=== PATIENT | female | born 1980 | race Caucasian/White ===

== ENCOUNTER → 2019-05-30 11:42 | Outpatient (BNVA) | payer OTHER, SELFPAY | PROVIDERS: Family Provider Nurse Practitioner; Visit Provider Nurse Practitioner Family | DX: R05 Cough (principal) | CPT/HCPCS: 71046 ==

== ENCOUNTER 2019-10-28 11:58 | Outpatient (CLI) | payer OTHER, SELFPAY ==
--- NOTE | 2019-10-28 12:21 | MM_ITS ---
WS: [id number] BILATERAL DIGITAL SCREENING MAMMOGRAM WITH CAD CLINICAL INFORMATION: SCREEN HISTORY: Screening mammogram. reported lump. Patient does not feel lump. COMPARISON: [id number] TECHNIQUE: Bilateral CC and MLO. FINDINGS: The breast are composed of extremely dense tissue, which can limit the detection of small underlying mass lesions. No suspicious focal mass, asymmetry, calcifications, or architectural distortion. No ev idence of malignancy. Punctate calcifications. MM/[place] [id number] IMPRESSION: BI-RADS: 2-Benign FOLLOW UP: 1 Year Follow-up Recommend return to annual screening mammography.
== END 2019-10-28 11:59 | disposition home or self-care (01) ==
LOC: RADSHAW 12:02
PROVIDERS: Visit Provider Obstetrics & Gynecology
DX: Z12.31 Encounter for screening mammogram for malignant neoplasm of breast (principal)
CPT/HCPCS: 77067

== ENCOUNTER → 2020-01-14 08:02 | Outpatient (BNVA) | payer OTHER, SELFPAY | PROVIDERS: Visit Provider Podiatrist Foot & Ankle Surgery | DX: M79.671 Pain in right foot (principal); M79.672 Pain in left foot; M20.5X2 Other deformities of toe(s) (acquired), left foot | CPT/HCPCS: 73630 ==

== ENCOUNTER → 2020-02-04 08:47 | Outpatient (BNVA) | payer OTHER, SELFPAY | PROVIDERS: Referring Provider Nurse Practitioner; Visit Provider Specialist | DX: M79.641 Pain in right hand (principal) | CPT/HCPCS: 73130 ==

== ENCOUNTER 2020-02-04 14:32 | Outpatient (CLI) | payer OTHER, SELFPAY | END 2020-02-04 14:33 | disposition home or self-care (01) | LOC: SPT 14:33 | PROVIDERS: Visit Provider Specialist | DX: Z46.89 Encounter for fitting and adjustment of other specified devices (principal); M18.11 Unilateral primary osteoarthritis of first carpometacarpal joint, right hand | CPT/HCPCS: 97760; L3924; L4361 ==

== ENCOUNTER → 2020-03-15 16:22 | Outpatient (BNVA) | payer OTHER, SELFPAY | PROVIDERS: Visit Provider Podiatrist Foot & Ankle Surgery | DX: Z20.828 Contact with and (suspected) exposure to other viral communicable diseases (principal); Z01.818 Encounter for other preprocedural examination | CPT/HCPCS: 87635 ==

== ENCOUNTER 2020-03-19 05:51 | Day surgery (SDC) | payer OTHER, SELFPAY ==
[2020-03-18 17:24] VITALS: BMI 21.4
--- NOTE | 2020-03-19 06:19 | ANES.PREANE2 ---
Pre-Anesthetic Assessment Pre-Anesthetic Assessment: Height/Weight: Height 1.83 m Weight 71.668 kg Preop Diagnosis: Right bunion Proposed Procedure: Operation Date: 03/19/20 07:00 Proposed Procedures p Bunionectomy Lapidus [id number] M21.611(Right) - Bon Yanes DPM s Joce Osteotomy(Right) - Bon Yanes DPM Social: Social History: No alcohol and No tobacco History/ROS: No significant history except as noted Pulmonary: Pulmonary: None reported CV/HEM: CV/HEM: None reported : : None reported Hepatic: Hepatic: None reported GI: GI: None reported Metabolic: Metabolic: None reported Musc/skel: Musc/skel: OA/DJD Neuropsych: Neuropsych: None reported Anesthetic Plan: ASA status: 2 Anesthesia: Anesthesia Evaluation, Eval. for regional block and General Risk of > 500 ml blood loss (7ml/kg in children): No PFSH Anesthesia PFSH: Medical History History of herpes zoster Surgical History History of bunionectomy 1993 and 2013 History of cholecystectomy 2009 History of tonsillectomy and adenoidectomy 1986 Family History Mother Cancer Breast cancer Social History Smoking and tobacco status: never smoked Lives independently: Yes Household members: spouse and children Housing: House Marital status: Number of children: 3 Highest education level completed: Master's Degree Current occupational status: 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
[2020-03-19 06:21] VITALS: BP 130/84; PULSE 69; RESP 18; TEMP 36.7; O2SAT 95
[2020-03-19] MEDS: sodium chloride 0.9% 1,000 ML 30 ML IV (06:30)
--- NOTE | 2020-03-19 06:46 | P.HP_ITS ---
Providers/Chief Complaint Primary Care Provider: Loree Hardy BLOOD TESTER Chief Complaint: Bunion right great toe History of Present Illness Hilaria Gutierrez is a 39 year old female here today for evaluation of her bilateral foot pain. She states that she had a bunionectomy to her left foot 26 years ago and she has had a reoccurance that is causing her pain daily. She had a bunionectomy to her right foot 6 years ago and it has also had a reoccurrence. States that her right bunion is painful she also has hammertoes and a bunion of the left these are of lesser concern for her, her right bunion has been a source of pain on a daily basis she wears [employer] tennis shoes while at work, she is a secondary school teacher, she has tried a variety of [id number] spacing, pads and splints, wide accommodative shoes and inserts without relief. She would like to discuss surgical procedures at this time given her history of conservative measures at home prior to presentation. Review of Systems General: Reports: 10 or more systems reviewed and unremarkable except in HPI and below Const: Denies: fever(s) or chills Eyes: Denies: change in vision Card: Denies: chest pain or palpitations Resp: Denies: dyspnea or productive cough GI: Denies: abdominal pain, nausea or vomiting : Denies: flank pain Musc: Reports: extremity pain, joint pain, joint stiffness, limited range of motion and deformity Skin/Breast: Reports: skin tenderness; Denies: rash Neuro: Reports: difficulty walking; Denies: numbness in extremities, sensory changes or frequent falls Psych: Denies: suicidal ideation Bulmaro/Lymph: Denies: easy bruising Medications/Allergies Home Medications Medication Instructions Recorded Confirmed Last Taken Type CMC brace #1 ea 02/04/20 02/04/20 Unknown Rx cam boot #1 ea 02/04/20 Unknown Rx Allergies Allergy/AdvReac Type Severity Reaction Status Date / Time hydrocodone Allergy ALGY-Rash Verified 03/19/20 06:20 Penicillins Allergy ALGY-Rash Verified 03/19/20 06:20 PFSH PFSH: Medical History (Updated 03/19/20 @ 06:55 by Bon Yanes DPM) History of herpes zoster Surgical History History of bunionectomy 1993 and 2013 History of cholecystectomy 2009 History of tonsillectomy and adenoidectomy 1987 Family History Mother Cancer Breast cancer Social History Smoking and tobacco status: never smoked Lives independently: Yes Household members: spouse and children Housing: House Marital status: Number of children: 3 Highest education level completed: Master's Degree Current occupational status: employed Current occupation: Teacher Current gender identity: Female Vital Signs Vitals Signs: Last Vital Signs Temp 98.1 F 03/19/20 06:21 Pulse 69 03/19/20 06:21 Resp 18 03/19/20 06:21 BP 130/84 03/19/20 06:21 Pulse Ox 95 03/19/20 06:21 Weight: Weight last 48 hrs Weight 158 lb Physical Exam Narrative: EXAM NARRATIVE: Patient is alert and oriented ?3 and in no acute distress. The following is a focused bilateral lower extremity exam. VASCULAR: Dorsalis pedis and posterior tibial arteries palpable +2. Capillary refill time less than 3 seconds to the distal hallux bilaterally. Calf is supple and nontender proximally and distally. No pedal edema appreciated. Pedal hair growth present. NEUROLOGICAL: Epicritic and protopathic sensations grossly intact to the lower extremities. +2 Achilles tendon reflex noted bilaterally. Negative Tinel sign upon percussion of lower extremity nerves. DERMATOLOGICAL: Lower extremity skin is well-hydrated, normal texture and turgor. There are no open sores or lesions noted to the lower extremities. No erythema or ecchymosis present to the bilateral legs and feet. MUSCULOSKELETAL: Pain to palpation at the right bunion deformity at the medial aspect of the first metatarsal phalangeal joint as well as dorsally. Hallux abductovalgus deformity noted bilaterally right more severe with medial eminence appreciated right greater than left. Flexible flatfoot bilaterally. Arch is re-created with elevation of the hallux. Reducible hammertoe deformities 2 through 5 right foot and 2 and 3 left foot semi-reducible hammertoe deformity 4 and 5 left foot. Muscle strength 5 out of 5 in all 3 cardinal planes. Hallux is not track bound. Range of motion at the first metatarsal phalangeal joint is smooth without crepitus it is painful. Resp: COMMON NORMALS: normal respiratory effort, No retractions, No use of accessory muscles and clear to auscultation bilaterally EFFORT & INSPECTION: Yes able to speak in complete sentences and Yes symmetric chest movement Cardio: COMMON NORMALS: regular rate, regular rhythm, S1 normal heart sound present, S2 normal heart sound present and Peripheral pulses 2+ throughout A&P Assessment and plan (1) Bunion, right foot: Status: Acute xrays are obtained today and reviewed with the patient in detail patient has had a recurrence of bunion deformity bilaterally right more severe. She has retained hardware at the first metatarsal head right. -discussed conservative measures vs a lapidus bunionectomy, right consisting of wide accommodative shoes, orthotics, NSAIDs, activity modification and padding. She has been performing these measures for years without improvement. -discussed recovery of surgery, she would be NWB for 6 weeks, then she would transition to WBAT in her cam boot -she would like to have the surgery, but she also is seeing Dr. Jo in 2 weeks and she has a very high deductible. She is thinking that she would like to tejas edule it for April in a new calendar year -she is tentatively scheduled for 04/09/2019, H&P will be done on the day of surgery planning on Lapidus bunionectomy with Joce osteotomy. Lapidus bunionectomy CPT code 59802, Joce osteotomy CPT code 62740. Risks include pain, bleeding, numbness, infection, swelling, painful scar, surgical site dehiscence, painful hardware, hardware failure, delayed union, nonunion, malunion, recurrence of deformity, overcorrection of deformity, transfer pressure and transfer lesions. Patient scheduled for Lapidus bunionectomy and Joce osteotomy right foot with hardware removal. Duration of procedure 60 minutes. MAC anesthesia, appreciate popliteal block. Coding Level of Care Code Acute Computer Information Systems Instructor for Sebastián Rosenberg Diagnoses Bunion, right foot M21.611
[2020-03-19] MEDS: clindamycin 600 MG/50 ML PREMIX 100 MG IV (07:11)
--- NOTE | 2020-03-19 08:25 | ANES.PROC ---
Anesthesia Procedures Procedure/Date: 03/19/20 Nerve Block ^: Nerve Block 1: Main Anesthesia: general anesthesia Time Out Performed: Yes Consent: requested by attending/covering physician, risks and benefits reviewed and patient agrees to proceed Nerve block location: popliteal (right) Anesthesia monitors applied: pulse oximetry, EKG, BP cuff and oxygen Nerve block position: lateral (left) Anesthetic Used: ropivicaine 0.5% and with decadron (4mg) Amount of anesthesia used (mL): 30 Ultrasound used to: recognize landmarks Nerve Stimulator Used?: Yes Interscalene/Femoral BLK: 4 stimuplex 21 g needle used for position and inplane approach, visualize local anesthetic spread and no vascular puncture identified Injection: neg aspiration of heme Patient Tolerated Procedure: well and no complications Complications: none
--- NOTE | 2020-03-19 09:58 | XR_ITS ---
WS: [id number] XR foot RT min 3V* [id number] REASON FOR EXAM: post op FINDINGS: Osteotomy with pinning proximal phalanx right great toe. Plate and screw fixation of the tarsal metat arsal joint of the right great toe. Surgical appliances are in proper position and alignment. Valgus deformity reduced. XR/XR foot RT min 3V* [id number] IMPRESSION: Postoperative right foot as above.
[2020-03-19 10:10] VITALS: BP 126/72; PULSE 66; RESP 18; TEMP 37; O2SAT 99
[2020-03-19 10:43] VITALS: BP 123/82; PULSE 52; RESP 18; O2SAT 100
--- NOTE | 2020-03-19 22:29 | P.OP_ITS ---
Operative Report Date of procedure: March 19, 2020 Pre-op Diagnosis: Right bunion Post-op diagnosis: same Procedure Done: Lapidus bunionectomy and Joce osteotomy right foot, CPT code 33597 and CPT code 81261 Implants: Right medical 10 mm nitinol staple Joce osteotomy. [employer] Lapidus plate and [employer] 3.5 mm locking screws, [employer] headed 4 mm screw. 2-0 Vicryl, 4-0 Vicryl, 5-0 Monocryl, 4-0 nylon. Pathology: none sent Surgeon: Bon Yanes D.P.M. Blast Hole Driller: Faith Anesthesia: MAC Estimated blood loss: 15 mL Tourniquet time: See intraoperative documentation IV fluids: None Urine output: None Complications: None Findings: Arthrosis at the first metatarsophalangeal joint right foot. Retained nonabsorbable FiberWire at the capsule of the right first metatarsophalangeal joint and significant capsular thickening. Condition: stable Disposition: PACU Brief History: Ms. Gutierrez is a pleasant 39-year-old female who experiences significant pain on every day activities while working, recreational activities as well as basic everyday living such as standing and walking. She has pain at her right bunion. History of distal metatarsal head osteotomy with retained hardware 6 years ago. Patient states that her bunion has progressively worsened, she has been wearing wide accommodative toe box, wide shoes, supportive shoes, padding, spacers, anti-inflammatories, stretching and activity modifications and continues to have pain. Would like to undergo revisional bunionectomy. Risks include pain, bleeding, numbness, infection, swelling, hypersensitivity, neuralgia, painful scar, surgical site dehiscence, bruising, transfer pressure, transfer lesion, delayed union, malunion, painful retained hardware, hardware failure, allergic reaction to hardware, failure to correct deformity, overcorrection of deformity, hallux varus, excessive scarring and stiffness at the first metatarsophalangeal joint, need for further surgical intervention. Also risks associated with anesthesia, increased risk for DVT, PE, heart attack and stroke. Patient seen preoperatively, informed consent signed, patient is answered to patient satisfaction. Initials on the right foot. Patient wishes to proceed. Her friend Mariia is present. No guarantees written, expressed or implied. Procedure: Under mild sedation the patient was brought to the operating room and placed on the operating table in supine position. A timeout was performed. Anesthesia was then administered by the anesthesia service. Local anesthesia injected by myself consisting of 20 cc of 0.5 sent Marcaine plain. Patient did receive a popliteal block preoperatively. Well-padded pneumatic tourniquet was then applied to the right ankle. Right lower extremity was scrubbed, prepped and draped utilizing normal aseptic technique. Right foot was examined a weighted with an Esmarch bandage and the tourniquet was inflated to 250 mmHg. Attention was directed to the dorsal medial aspect of the right first tarsometatarsal joint where a linear longitudinal incision was made medial and parallel to the extensor hallucis longus tendon through skin with a #15 blade. Dissection was carried down through subcutaneous tissue utilizing a combination of blunt and sharp technique. Care was taken to retract and preserve neurovascular and tendinous structures. Bleeders were ligated and cauterized as necessary. A linear capsulotomy was performed and the base of the first metatarsal as well as the distal aspect of the medial cuneiform were freed of their soft tissue and ligament attachments. Antemann self-retaining distractor with Steinmann pins utilized to distract the first tarsometatarsal joint which was then prepared for arthrodesis via curettage and osteotome. Articular surface were denuded, subchondral plate was then penetrated utilizing fish scaling as well as subchondral drill bit. Attention was then directed to the medial aspect of the first metatarsophalangeal joint where a linear incision with a #15 blade was utilized to cross of first metatarsal phalangeal joint and the medial aspect of the proximal phalanx this was medial to the extensor hallucis longus tendon. Dissection carried down through skin, subcutaneous tissue down to the level of the joint capsule utilizing sharp and blunt technique. Care was taken to retract and preserve neurovascular and tendinous structures. Bleeders were ligated and cauterized as necessary. Linear capsulotomy was performed medially, there was significant capsular thickening this was debulked sharply with a fresh 15 blade and brown pickups. There was significant amount of nonabsorbable fiber tape both at the medial first metatarsophalangeal joint capsule does also coursed dorsally just inferior to the extensor pollicis longus tendon this was identified and sharply excised. Debris was passed from the operative field. Incision sites were flushed with copious amounts of sterile saline solution. The medial eminence of the first metatarsal head was transected followed by insertion of K wire and reduction jig provided by [employer] for frontal plane and intermetatarsal angle correction. Temporary fixation was then held utilizing K wire at the base of the first metatarsal crossing into the cuneiform. Positioning of correction noted to be excellent utilizing intraoperative fluoroscopy followed by fixation utilizing standard AO technique this was a [employer] 4.0 mm headed screw across the tarsometatarsal joint followed by locking plate with 2 screws distal and 2 screws proximal with excellent bony apposition and compression noted. Temporary fixation removed as well as Steinmann pins. Positioning and hardware placement confirmed with intraoperative fluoroscopy in all 3 cardinal planes noted to be excellent. Attention was then directed to the medial aspect of the proximal phalanx where a Joce osteotomy was performed utilizing a sagittal saw maintaining a lateral hands and fixated utilizing a 10 mm straight compression staple with excellent bony apposition and compression noted with the hallux in a more rectus position. Further capsular debulking was performed. Incision sites were then flushed with saline solution. Of note a lateral release was performed through a small stab incision at the first interspace as well as a small stab incision directly over the second metatarsal for the jig placement. All temporary fixation was removed, once again anatomical correction and hardware placement visualized utilizing intraoperative fluoroscopy noted to be excellent all 3 cardinal planes. Incision sites were flushed with saline solution. Distal incision at the first metatarsophalangeal joint closed utilizing 2-0 Vicryl, 4-0 Vicryl and 4-0 nylon. To dorsal distal stab incisions also closed utilizing 4-0 nylon. Proximal incision closed utilizing 2-0 Vicryl, 4-0 Vicryl and 5-0 Monocryl in a running intracuticular fashion. Incisions were dressed with Adaptic, sterile 4 x 4, Kerlix and Luc followed by application of cam boot. Of note was unable to retrieve the hardware at the first metatarsal head from previous surgery due to stripped out Cook head on the screw. Tourniquet was deflated and a prompt hyperemic response was noted to the distal digits of the right foot. Patient tolerated the procedure and anesthesia well and was transferred to the PACU with vital signs stable vascular status intact. Following a period of postoperative monitoring she will be discharged home.
== END 2020-03-19 11:40 | disposition home or self-care (01) ==
PROVIDERS: PCP Nurse Practitioner Family; Visit Provider Podiatrist Foot & Ankle Surgery
PROC: (CPT 28297; principal; 2020-03-19 07:00)
PROC: (CPT 28298; 2020-03-19 07:00)
DX: M21.611 Bunion of right foot (principal); M19.90 Unspecified osteoarthritis, unspecified site
CPT/HCPCS: 28297; 28298; 12345; 64450; 73630; 76942; 96374; 96375; C1713; C9290; J1100; J2250; J2704; J2795; J3010; J3490; J7030

== ENCOUNTER → 2020-03-24 10:54 | Outpatient (BNVA) | payer OTHER, SELFPAY | PROVIDERS: PCP Nurse Practitioner Family; Visit Provider Podiatrist Foot & Ankle Surgery | DX: Z47.89 Encounter for other orthopedic aftercare (principal); M21.611 Bunion of right foot | CPT/HCPCS: 73630 ==

== ENCOUNTER → 2020-04-05 08:53 | Outpatient (BNVA) | payer OTHER, SELFPAY | PROVIDERS: PCP Nurse Practitioner Family; Visit Provider Podiatrist Foot & Ankle Surgery | DX: M21.611 Bunion of right foot (principal) | CPT/HCPCS: 73630 ==

== ENCOUNTER → 2020-04-19 08:08 | Outpatient (BNVA) | payer OTHER, SELFPAY | PROVIDERS: PCP Nurse Practitioner Family; Visit Provider Podiatrist Foot & Ankle Surgery | DX: M21.611 Bunion of right foot (principal) | CPT/HCPCS: 73630 ==

== ENCOUNTER → 2020-05-03 08:43 | Outpatient (BNVA) | payer OTHER, SELFPAY | PROVIDERS: PCP Nurse Practitioner Family; Visit Provider Podiatrist Foot & Ankle Surgery | DX: M21.611 Bunion of right foot (principal) | CPT/HCPCS: 73630 ==

== ENCOUNTER → 2020-05-31 09:13 | Outpatient (BNVA) | payer OTHER, SELFPAY | PROVIDERS: PCP Nurse Practitioner Family; Visit Provider Podiatrist Foot & Ankle Surgery | DX: M21.611 Bunion of right foot (principal); Z48.89 Encounter for other specified surgical aftercare | CPT/HCPCS: 73630 ==

== ENCOUNTER → 2020-06-28 14:21 | Outpatient (BNVA) | payer OTHER, SELFPAY | PROVIDERS: PCP Nurse Practitioner Family; Visit Provider Podiatrist Foot & Ankle Surgery | DX: M21.611 Bunion of right foot (principal); Z48.89 Encounter for other specified surgical aftercare | CPT/HCPCS: 73630 ==

== ENCOUNTER → 2020-08-17 14:06 | Outpatient (BNVA) | payer OTHER, SELFPAY | PROVIDERS: PCP Nurse Practitioner Family; Visit Provider Podiatrist Foot & Ankle Surgery | DX: Z48.89 Encounter for other specified surgical aftercare (principal) | CPT/HCPCS: 73630 ==

== ENCOUNTER → 2020-08-21 12:14 | Outpatient (BNVA) | payer OTHER, SELFPAY | PROVIDERS: PCP Nurse Practitioner Family; Visit Provider Nurse Practitioner | DX: T84.84XA Pain due to internal orthopedic prosthetic devices, implants and grafts, initial encounter (principal); Z20.822 Contact with and (suspected) exposure to COVID-19 | CPT/HCPCS: 87635 ==

== ENCOUNTER 2020-08-27 05:55 | Day surgery (SDC) | payer OTHER, SELFPAY ==
[2020-08-26 17:11] VITALS: BMI 21.4
[2020-08-27] VITALS (9 sets, daily range): BP systolic 96–136; BP diastolic 55–90; PULSE 60–88; RESP 15–18; TEMP 36.4–36.6; O2SAT 95–99
[2020-08-27] MEDS: sodium chloride 0.9% 1,000 ML 30 ML IV (06:35)
--- NOTE | 2020-08-27 06:35 | PM.OPSURHP ---
Providers/Chief Complaint Primary Care Provider: Loree Hardy Chief Complaint: pain due to internal orthopedic prosthetic device History of Present Illness 39 year old female patient here for post-operative follow up. Following Lapidus bunionectomy and Joce osteotomy right foot. DOS 03/19/20. She has been WB in a regular shoe. Patient still has complaints about pain at the top of her foot towards her ankle. Patient states that she can't really describe the pain. Patient still has pain present. Believes that she is altering her gait as a result of painful hardware. Patient denies any subjective nausea, vomiting, fever, chills, shortness of breath or chest pain. Review of Systems Const: Denies: fever(s) or chills Card: Denies: chest pain or dyspnea on exertion Resp: Denies: dyspnea or productive cough GI: Denies: abdominal pain, nausea or vomiting : Denies: difficulty voiding Musc: Reports: extremity pain, extremity swelling and limited range of motion Skin/Breast: Denies: changes in skin color or dry skin Neuro: Denies: numbness in extremities or weakness in extremities Psych: Denies: anxiety Bulmaro/Lymph: Denies: easy bruising or easy bleeding Medications/Allergies Home Medications Medication Instructions Recorded Confirmed Last Taken Type citalopram [Celexa] 20 mg PO BEDTIME 08/26/20 08/27/20 08/26/20 History levonorgestrel-ethinyl estrad 1 tab PO DAILY 08/26/20 08/27/20 08/26/20 History [Larissia] ondansetron HCl [Zofran] 4 mg PO TID PRN 7 Days #20 tab 08/27/20 Unknown Rx oxycodone-acetaminophen [Percocet] 1 tab PO Q4H PRN 7 Days #28 tab 08/27/20 Unknown Rx Allergies Allergy/AdvReac Type Severity Reaction Status Date / Time hydrocodone Allergy ALGY-Rash Verified 08/26/20 17:07 Penicillins Allergy ALGY-Rash Verified 08/26/20 17:07 PFSH PFSH: Medical History History of herpes zoster Surgical History History of bunionectomy 1993 and 2013 History of cholecystectomy 2009 History of tonsillectomy and adenoidectomy 1987 Family History Mother Cancer Breast cancer Social History Smoking and tobacco status: never smoked Lives independently: Yes Household members: spouse and children Housing: House Marital status: Number of children: 3 Highest education level completed: Master's Degree Current occupational status: employed Current occupation: Teacher Current gender identity: Female Vital Signs Vitals Signs: Last Vital Signs Temp 97.5 F L 08/27/20 06:17 Pulse 69 08/27/20 06:17 Resp 15 08/27/20 06:17 BP 136/90 08/27/20 06:17 Pulse Ox 95 08/27/20 06:17 Weight: Weight last 48 hrs Weight 158 lb Weight 158 lb Physical Exam Narrative: EXAM NARRATIVE: Patient is alert and oriented ?3 and in no acute distress. The following is a focused right lower extremity exam. VASCULAR: Dorsalis pedis and posterior tibial arteries palpable +2. Capillary refill time less than 3 seconds to the distal hallux bilaterally. Calf is supple and nontender proximally and distally. Mild edema at the operative site consistent with postoperative course. NEUROLOGICAL: Protective sensation intact to light touch. DERMATOLOGICAL: Well-healed cicatrix at the right foot bunionectomy site. MUSCULOSKELETAL: There is pain to palpation at the right first tarsometatarsal arthrodesis site/Lapidus site. Muscle strength 5 out of 5 in all 3 cardinal planes pain-free without guarding. First metatarsophalangeal joint dorsiflexion is approximately 30 degrees, this is similar to her preoperative dorsiflexion which was also decreased. No pain with posterior calf squeeze. A&P Assessment and plan (1) Painful orthopaedic hardware: Status: Acute Painful retained hardware right foot at the Lapidus arthrodesis site. Recommending hardware removal. Risks include pain, bleeding, numbness, infection, failure to alleviate pain, altered mechanics, transfer pressure, swelling, surgical site dehiscence, paresthesias and need for further surgical intervention. She presents n.p.o. since midnight in preparation for the procedure, Covid screening was negative. Informed consent signed by myself and patient, all questions answered to her satisfaction she wishes to proceed. Deep hardware removal, 08/27/2020, MAC anesthesia, duration of procedure 30 minutes. Will follow-up 1 week postoperativelyNext September 03 in the morning at podiatry clinic for dressing change Coding Level of Care Code Acute Chiropractic Neurologist for Sebastián Rosenberg Diagnoses Painful orthopaedic hardware T84.84XA
--- NOTE | 2020-08-27 06:43 | P.OP_ITS ---
Operative Report Date of procedure: August 27, 2020 Pre-op Diagnosis: Painful hardware right foot Post-op diagnosis: same Procedure Done: Deep hardware removal right foot CPT code 37611 Implants: 2-0 Vicryl, 4-0 Vicryl, 5-0 Monocryl Pathology: none sent Surgeon: Bon Yanes D.P.M. Reflector Driller And Deburrer: Ethan Anesthesia: MAC Estimated blood loss: Less than 5 mL Tourniquet time: See intraoperative documentation Complications: none Condition: stable Disposition: PACU Brief History: Patient had a revisional bunionectomy, original bunionectomy performed by another provider. I performed a Lapidus bunionectomy. She has had residual pain suspected painful retained hardware plates and screws. Discussed risks versus benefits of hardware removal she would like to proceed. Informed consent signed by myself and patient. I initialed the right foot. She has been n.p.o. since midnight. Risks include pain, bleeding, numbness, infection, surgical site dehiscence, chronic swelling, failure to alleviate pain, altered mechanics, transfer pressure and compensated gait resulting in persistent pain. Recurrence of bunion deformity and need for further surgical intervention. No guarantees written, expressed or implied. Procedure: Under mild sedation the patient was brought to the operating room and placed on the operating table in supine position. A timeout was performed. Anesthesia was then administered by the anesthesia service. Local anesthesia injected by myself consisting of 30 cc of one-to-one mixture 1% lidocaine and 0.5% Marcaine plain in a proximal Martínez block fashion right foot. Well-padded tourniquet applied to the right ankle. Right lower extremity was then scrubbed, prepped and draped utilizing normal aseptic technique. Right foot was examined a weighted with an Esmarch bandage and the tourniquet inflated to 250 mmHg. Attention was directed to the cicatrix of the tarsal metatarsal arthrodesis site right foot. Directly over the previous incision a new incision was made with a #15 blade through skin and dissection carried down through subcutaneous tissue to the layer of hardware utilizing blunt and sharp technique. Care was taken to retract and preserve neurovascular and tendinous structures. All bleeders were ligated and cauterized as necessary. Total of 5 screws and 1 plate were removed and the incision site was flushed with copious amounts of sterile saline solution. At the interfrag screw there was some metal deposits and debris this was removed in total with flush, lavage and pickups. The incision site was free of any further debris at this time periosteum was closed utilizing 2-0 Vicryl, subcutaneous tissue closed utilizing 4-0 Vicryl and skin closed utilizing 5-0 Monocryl followed by Steri and benzoin. Dressings consisting of Adaptic, sterile 4 x 4, Kerlix and Luc wrap followed by postop shoe was applied to the right lower extremity. Tourniquet was deflated and a prompt hyperemic response was noted to the distal digits of the right foot. Patient tolerated the procedure and anesthesia well and was transferred to the PACU with vital signs stable and vascular status intact. Following a period of postoperative monitoring she will be discharged home may be weightbearing as tolerated, is to elevate her right foot while at rest. Will follow up in 1 week for her first dressing change in podiatry clinic as a nursing visit. She was provided my cell phone number and is to contact me with any postoperative questions or concerns.
--- NOTE | 2020-08-27 06:47 | ANES.PREANE2 ---
Pre-Anesthetic Assessment Pre-Anesthetic Assessment: Height/Weight: Height 1.83 m Weight 71.668 kg Temp Pulse Resp BP Pulse Ox 97.5 F L 69 15 136/90 95 08/27/20 06:17 08/27/20 06:17 08/27/20 06:17 08/27/20 06:17 08/27/20 06:17 Preop Diagnosis: Painful hardware right foot Proposed Procedure: Operation Date: 08/27/20 07:00 Proposed Procedures p Hardware Removal 01290 T84.84XA(Right) - Bon Yanes DPM Familial anesthetic complications: None Was Beta Andrea taken within 24 hours: N/A Was Clonidine taken within 24 hours: N/A Last intake: Intake Last Liquid Date 08/26/20 Last Liquid Time 22:00 Last Solid Date 08/26/20 Last Solid Time 18:30 Social: Social History: No alcohol and No tobacco Exam: Pre-Anes Outpt Exam: alert, oriented x 3, clear to auscultation bilaterally and regular rate & rhythm Airway: Cervical ROM: WNL MP: 2 Dentition: Full Neuropsych: Neuropsych: Anxiety Anesthetic Plan: ASA status: 1 Anesthesia: MAC Risk of > 500 ml blood loss (7ml/kg in children): No Meds/Allergies Current Medications: Current Medications Generic Name Dose Route Start Last Admin Trade Name Freq PRN Reason Stop Dose Admin Sodium Chloride 1,000 mls @ 30 ml s/hr 08/27/20 06:00 08/27/20 06:35 Sodium Chloride 0.9% IV 08/28/20 05:59 30 mls/hr .Q24H SHIVAM Administration PFSH Anesthesia PFSH: Medical History History of herpes zoster Surgical History History of bunionectomy 1993 and 2013 History of cholecystectomy 2010 History of tonsillectomy and adenoidectomy 1987 Family History Mother Cancer Breast cancer Social History Smoking and tobacco status: never smoked Lives independently: Yes Household members: spouse and children Housing: House Marital status: Number of children: 3 Highest education level completed: Master's Degree Current occupational status: 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
[2020-08-27 06:48] LABS: OR HCG Qualitative Urine Negative (Negative)
[2020-08-27] MEDS: midazolam 1 mg/mL INJ 2 mL 2 MG IVP (06:54)
[2020-08-27] MEDS: clindamycin 600 MG/50 ML PREMIX 100 MG IV (06:59)
--- NOTE | 2020-08-27 07:57 | XR_ITS ---
WS: [id number] Exam: XR foot RT 2V [id number] Date/Time of Exam: 08/27/2020 8:00 AM Reason For Exam: post op Comparison 08/17/2020. Previously noted hardware bridging the first metatarsal cuneiform joint has been removed. A single or thopedic screw is still noted in the distal first metatarsal. There is also a surgical staple in plac e in the proximal phalanx of the great toe. No fracture or dislocation. Postoperative changes of buni on repair. XR/XR foot RT 2V [id number] IMPRESSION: 1. Hardware removal from the first cuneiform metatarsal joint. 2. Additional postoperative changes of bunion repair. No acute injury noted.
[2020-08-27] MEDS: fentaNYL 50 mcg/mL INJ 2mL IVP ×2 (08:00→08:05)
[2020-08-27] MEDS: oxyCODONE-APAP 10-325 mg Tablet 1 TAB PO (09:04)
--- NOTE | 2020-08-27 13:11 | ANE.PACU2 ---
Inpatient post-anesthesia follow up: Airway intact: Yes Vital signs: Temperature 97.9 F Pulse Rate 60 Respiratory Rate 16 Blood Pressure 98/63 Pulse Oximetry 99 Oxygen Delivery Me thod Room Air Oxygen Flow Rate Fraction of Inspir ed Oxygen Hydration adequate: Yes Nausea and vomiting: No Pain level: 2 Mental status: Baseline
== END 2020-08-27 10:30 | disposition home or self-care (01) ==
PROVIDERS: Anesthesiology; PCP Nurse Practitioner Family; Visit Provider Podiatrist Foot & Ankle Surgery
PROC: (CPT 20680; principal; 2020-08-27 07:00)
DX: T84.84XA Pain due to internal orthopedic prosthetic devices, implants and grafts, initial encounter (principal); F41.9 Anxiety disorder, unspecified
CPT/HCPCS: 20680; 73620; 81025; 84703; 96365; 96374; J2250; J2405; J2704; J3010; J3490; J7030; L3260

== ENCOUNTER 2020-11-05 08:34 | Outpatient (CLI) | payer OTHER, SELFPAY ==
--- NOTE | 2020-11-05 08:43 | MM_ITS ---
WS: [id number] BILATERAL DIGITAL SCREENING MAMMOGRAM WITH CAD CLINICAL INFORMATION: SCREENING HISTORY: Screening mammogram. No current complaints. COMPARISON: October 28, 2019 TECHNIQUE: Bilateral CC and MLO. FINDINGS: The breast are composed of extremely dense tissue, which can limit the detection of small underlying mass lesions. A few punctate calcifications left breast. No suspicious focal mass, asymmetry, calcifi cations, or architectural distortion. No evidence of malignancy. MM/[place] [id number] IMPRESSION: BI-RADS: 2-Benign FOLLOW UP: 1 Year Follow-up Recommend return to annual screening mammography.
== END 2020-11-05 08:35 | disposition home or self-care (01) ==
LOC: RADSHAW 08:39
PROVIDERS: PCP Nurse Practitioner Family; Visit Provider Obstetrics & Gynecology
DX: Z12.31 Encounter for screening mammogram for malignant neoplasm of breast (principal)
CPT/HCPCS: 77067

== ENCOUNTER → 2021-06-23 15:25 | Outpatient (BNVA) | payer OTHER, SELFPAY | PROVIDERS: PCP Nurse Practitioner Family; Visit Provider Surgery | DX: Z20.822 Contact with and (suspected) exposure to COVID-19 (principal); Z01.812 Encounter for preprocedural laboratory examination | CPT/HCPCS: 87635 ==

== ENCOUNTER 2021-06-29 06:58 | Day surgery (SDC) | payer OTHER, SELFPAY ==
[2021-06-27 09:39] VITALS: BMI 21.7
[2021-06-29 07:34] VITALS: BP 130/90; PULSE 86; RESP 16; TEMP 36.3; O2SAT 98
--- NOTE | 2021-06-29 07:35 | P.ANESASSM_ITS ---
Pre-Anesthetic Assessment Height/Weight: Height 1.83 m Weight 72.575 kg Preop Diagnosis: diagnostic Operation Date: 06/29/21 08:15 Proposed Procedures p EGD 90509/48094/R14.00/R10.13/K62.5(Not Applicable) - Agustin Chao MD s Colonoscopy(Not Applicable) - Agustin Chao MD Familial anesthetic complications: None Was Beta Andrea taken within 24 hours: N/A Was Clonidine taken within 24 hours: N/A Social No alcohol and No tobacco Exam alert, oriented x 3, clear to auscultation bilaterally and regular rate & rhythm Airway Submandibular: Other (Less than 2 finger breadths ) Cervical ROM: within normal limits Mallampati: Class II Dentition: full History/ROS No significant complaints Pulmonary Nightime snoring, witnessed apnea, daytime fatigue CV/HEM None reported None reported Hepatic None reported GI Chronic GI bloating, GI bleeding, upset stomach Metabolic None reported Musc/skel None reported Neuropsych None reported Anesthetic Plan ASA status: 2 Anesthesia: Anesthesia Evaluation, General and MAC Other: I discussed with the patient risks, goals, and benefits of MAC and general anesthesia. We discussed spectrum of MAC anesthesia including conversion to general as well as possibility of recall of intraoperative stimuli including discomfort/pain. Patient agrees to proceed with MAC. Risk of > 500 ml blood loss (7ml/kg in children): No Medications/Allergies Home Medications Medication Instructions Recorded Confirmed Last Taken Type levonorgestrel-ethinyl estradiol 1 tab PO DAILY 08/26/20 06/27/21 08/26/20 History 0.1 mg-20 mcg tablet ([place]iss[place]) omeprazole 40 mg capsule,delayed 40 mg PO DAILY 05/20/21 06/27/21 Unknown History release venlafaxine 75 mg tablet 75 mg PO DAILY 05/20/21 06/27/21 Unknown History rimegepant 75 mg disintegrating 75 mg PO DAILY PRN 06/27/21 06/27/21 Unknown History tablet (Nurtec ODT) Allergies Allergy/AdvReac Type Severity Reaction Status Date / Time hydrocodone Allergy ALGY-Rash Verified 05/20/21 08:06 Penicillins Allergy ALGY-Rash Verified 05/20/21 08:06 [facility] Anesthesia Medical History History of herpes zoster Surgical History History of bunionectomy 1993 and 2013 History of cholecystectomy 2009 History of tonsillectomy and adenoidectomy 1986 Family History Mother Cancer Breast cancer Social History Smoking and tobacco status: never smoked Lives independently: Yes Household members: spouse and children Housing: House Marital status: Number of children: 3 Highest education level completed: Master's Degree Current occupational status: 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
[2021-06-29 07:41] LABS: OR HCG Qualitative Urine Negative (Negative)
[2021-06-29] MEDS: sodium chloride 0.9% 1,000 ML 30 ML IV (07:43)
[2021-06-29 08:34] VITALS: BP 122/80; PULSE 80; RESP 16; TEMP 36.4; O2SAT 98
--- NOTE | 2021-06-29 08:35 | P.HP_ITS ---
Same Day Surgery H&P Indication for Procedure/HPI DATE OF PROCEDURE: June 29, 2021 CHIEF COMPLAINT/INDICATIONFOR SURGICAL PROCEDURE: egd/colonoscopy PREOP DIAGNOSIS: diagnostic PLANNED PROCEDURE: Operation Date: 06/29/21 08:15 Proposed Procedures p EGD 87672/44120/R14.00/R10.13/K62.5(Not Applicable) - Agustin Chao MD s Colonoscopy(Not Applicable) - Agustin Chao MD Medications/Allergies* Home Medications Medication Instructions Recorded Confirmed Type levonorgestrel-ethinyl estradiol 1 tab PO DAILY 08/26/20 06/29/21 History 0.1 mg-20 mcg tablet ([place]iss[place]) omeprazole 40 mg capsule,delayed 40 mg PO DAILY 05/20/21 06/29/21 History release venlafaxine 75 mg tablet 75 mg PO DAILY 05/20/21 06/29/21 History rimegepant 75 mg disintegrating 75 mg PO DAILY PRN 06/27/21 06/29/21 History tablet (Nurtec ODT) Allergies/Adverse Reactions Allergy/AdvReac Type Severity Reaction Status Date / Time hydrocodone Allergy ALGY-Rash Verified 06/29/21 07:38 Penicillins Allergy ALGY-Rash Verified 06/29/21 07:38 Current Medications: Generic Name Dose Route Start Last Admin Trade Name Freq PRN Reason Stop Dose Admin Sodium Chloride 1,000 mls @ 30 mls/hr 06/29/21 07:30 06/29/21 07:43 Sodium Chloride 0.9% IV 06/30/21 07:29 30 mls/hr .Q24H SHIVAM Administration Pertinent History/Comorbid Conditions* Medical History (Updated 08/17/20 @ 17:17 by Bon Yanes DPM) History of herpes zoster Surgical History (Updated 06/29/21 @ 08:35 by Agustin Chao MD) H/O esophagogastroduodenoscopy (06/29/21) History of bunionectomy 1993 and 2013 History of cholecystectomy 2009 History of tonsillectomy and adenoidectomy 1987 Status post colonoscopy (06/29/21) Family History (Updated 12/31/19 @ 16:54 by MIGUEL ANGEL Buchanan) Cancer Mother Breast cancer Social History Smoking and tobacco status: never smoked Lives independently: Yes Household members: spouse and children Housing: House Marital status: Number of children: 3 Highest education level completed: Master's Degree Current occupational status: 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
--- NOTE | 2021-06-29 08:37 | ANE.PACU2 ---
Documented by User: Yury Mathur CRNA 06/29/21 08:37 Inpatient post-anesthesia follow up: Airway intact: Yes Vital signs: Temperature 97.5 F Pulse Rate 80 Respiratory Rate 16 Blood Pressure 122/80 Pulse Oximetry 98 Oxygen Delivery Me thod Room Air Oxygen Flow Rate Fraction of Inspir ed Oxygen Hydration adequate: Yes Nausea and vomiting: No Pain level: 1 Mental status: Baseline
[2021-06-29 08:45] VITALS: BP 112/80; PULSE 74; RESP 18; TEMP 36.2; O2SAT 99
== END 2021-06-29 09:06 | disposition home or self-care (01) ==
PROVIDERS: PCP Nurse Practitioner Family; Visit Provider Surgery
PROC: 0DJ08ZZ Inspection of Upper Intestinal Tract, Via Natural or Artificial Opening Endoscopic (ICD-10-PCS; CPT 43235; principal; 2021-06-29 08:15)
PROC: 0DJD8ZZ Inspection of Lower Intestinal Tract, Via Natural or Artificial Opening Endoscopic (ICD-10-PCS; CPT 45378; 2021-06-29 08:15)
DX: R14.0 Abdominal distension (gaseous) (principal); R10.13 Epigastric pain; K62.5 Hemorrhage of anus and rectum; K29.70 Gastritis, unspecified, without bleeding; K64.8 Other hemorrhoids
CPT/HCPCS: 43239; 45378; 84703; 88305; J2704; J7030

== ENCOUNTER 2022-03-31 12:45 | Outpatient (CLI) | payer OTHER, SELFPAY ==
--- NOTE | 2022-03-31 13:10 | MM_ITS ---
WS: [id number] Bilateral screening 3D tomosynthesis digital mammogram, 03/31/2022 Clinical Data: SCREENING Comparison: 11/05/2020, 10/28/2019, 09/08/2015. Findings: The breast parenchymal pattern shows extreme density. No spiculated masses or clustered calcification s are seen. There are no secondary signs of carcinoma. MM/[place] [id number] Impression: 1. Negative bilateral mammogram unchanged. 2. Recommend annual screening mammograms. BIRADS: 1-Negative FOLLOW UP: 1 Year Follow-up The CAD tip length checker was used.
== END 2022-03-31 12:46 | disposition home or self-care (01) ==
PROVIDERS: PCP Nurse Practitioner Family; Visit Provider Obstetrics & Gynecology
DX: Z12.31 Encounter for screening mammogram for malignant neoplasm of breast (principal)
CPT/HCPCS: 77063; 77067

== ENCOUNTER 2024-02-20 15:15 | Outpatient (REF) | payer OTHER, SELFPAY | END 2024-02-20 15:16 | disposition home or self-care (01) | LOC: LAB 15:15 | PROVIDERS: PCP Obstetrics & Gynecology | DX: Z01.89 Encounter for other specified special examinations (principal) | CPT/HCPCS: 86480 ==

== ENCOUNTER 2024-07-08 08:50 | Outpatient (CLI) | payer OTHER, SELFPAY ==
--- NOTE | 2024-07-08 08:50 | MM_ITS ---
WS: [id number] VIEWS: MLO and CC views both breasts. 3D digital tomosynthesis is also included in this exam. Comparison made with prior exam of 09/08/2015, 10/28/2019, 11/05/2020, 03/31/2022.. Findings: The breasts are extremely dense, which lowers the sensitivity of mammography. No suspicious mass, tumor calcification or architectural distortion. MM/MM scr BI tomosynthesis [id number] Impression: BI-RADS: 2 - Benign FOLLOW-UP: 1 Year Follow-up This mammogram was also analyzed by the Computer Aided Detection System R2 Imag e Tail Board Worker.
== END 2024-07-08 08:51 | disposition home or self-care (01) ==
PROVIDERS: PCP Family Medicine; Visit Provider Family Medicine
DX: Z12.31 Encounter for screening mammogram for malignant neoplasm of breast (principal); R92.343 Mammographic extreme density, bilateral breasts
CPT/HCPCS: 77063; 77067

== ENCOUNTER 2024-07-09 15:24 | Outpatient (CLI) | payer OTHER, SELFPAY | END 2024-07-09 15:25 | disposition home or self-care (01) | LOC: SLEEP 15:31 | PROVIDERS: PCP Family Medicine; Visit Provider Family Medicine | DX: G47.33 Obstructive sleep apnea (adult) (pediatric) (principal) | CPT/HCPCS: G0399 ==

== ENCOUNTER → 2024-10-09 07:56 | Outpatient (BNVA) | payer OTHER, SELFPAY | PROVIDERS: PCP Family Medicine; Visit Provider Family Medicine | DX: N95.1 Menopausal and female climacteric states (principal) | CPT/HCPCS: 82672; 83001; 83002; 84144; 84403 ==